=== PATIENT | female | born 1975 ===

== ENCOUNTER 2018-01-12 17:21 | Emergency (ER) | payer OTHER ==
[2018-01-12 17:33] VITALS: BP 116/72
[2018-01-12] MEDS ORDERED: cefTRIAXone VIAL(*) 1,000 MG VIAL IVPB ONE (17:55)
[2018-01-12] MEDS ORDERED: Dexamethasone IV* 4 MG/ML 1 ML (4 MG) IV SLOW PU ONE (17:56)
[2018-01-12] MEDS ORDERED: Ketorolac INJ* 30 MG/ML 1 ML VIAL IV PUSH ONE (17:57)
[2018-01-12] MEDS ORDERED: D5NS 0.9% 1000 ML BAG* 1,000 ML IV SCH (18:00)
--- NOTE | 2018-01-12 18:04 | UC ---
Throat Pain/Nasal Cordell HPI - HPI Summary HPI Summary: krista is an otherwise healthy 42-year-old female who presents to the with chief complaint of right-sided throat pain 7 days. A strep swab was obtained at her PCPs office and she was given penicillin twice a day. She started this antibiotic today. She has also been taking ibuprofen daily for her pain. She states her pain is getting worse and is also having difficulty opening her mouth and swallowing. History of a peritonsillar abscess to the ipsilateral side in February 2017. She states she was in the hospital 2 days with an incision and drainage made. This hospital admission was in [place]. She states she has similar symptoms to that time. She endorses odynophagia and dysphagia. Endorses pain to the right cervical anterior lymph node. She denies any fevers, sweats, chills. Denies any ear or nose symptoms. Jaw pain is bilateral and radiating to the TMJs. She continues to eat and drink, however with discomfort. On arrival her vital signs are stable except for a 99.6 slightly elevated temp. [ End ] - History of Current Complaint Chief Complaint: UCGeneralIllness Stated Complaint: SORE THROAT Time Seen by Provider: 01/12/18 17:37 Hx Obtained From: Patient Hx Last Menstrual Period: 3 days ago ?: No Onset/Duration: Sudden Onset Severity: Moderate Pain Intensity: 9 Pain Scale Used: 0-10 Numeric Associated Signs & Symptoms: Positive: Negative - Allergies/Home Medications Allergies/Adverse Reactions: Allergies Allergy/AdvReac Type Severity Reaction Status Date / Time ciprofloxacin [From Cipro] AdvReac Severe See Comment Verified 01/12/18 17:33 Home Medications: Home Medications Diclofenac Sodium EC TAB* [Voltaren EC TAB*] 25 mg PO ONCE PRN 01/12/18 [ History Confirmed 01/12/18] Ibuprofen TAB* [Motrin TAB* 600 MG] 600 mg PO Q6H PRN 01/12/18 [History Confirmed 01/12/18] Penicillin VK 500 MG TAB(NF) [Penicillin VK 500 mg Tab] 500 mg PO BID 01/12/18 [ History Confirmed 01/12/18] PMH/Surg Hx/FS Hx/Imm Hx Previously Healthy: Yes - Surgical History Surgical History: Yes Surgery Procedure, Year, and Place: February 2017 - peritonsillar abcess. breast surgery May 2017. x1. D&C x1. 7x orthopedic surgeries - Family History Known Family History: Positive: None - Social History Occupation: Employed Full-time Lives: With Family Alcohol Use: Rare Substance Use Type: None Smoking Status (MU): Never Smoked Tobacco Review of Systems All Other Systems Reviewed And Are Negative: Yes Constitutional: Positive: Negative Eyes: Negative: Blurred Vision, Diplopia, Drainage, Eye Redness ENT: Positive: Sore Throat. Negative: Nasal Discharge, Sinus Congestion, Sinus Pain/Tenderness Respiratory: Negative: Shortness Of Breath, Cough Cardiovascular: Positive: Negative Motor: Positive: Negative Neurovascular: Positive: Negative Neurological: Positive: Negative Is Patient Immunocompromised?: Yes Physical Exam Triage Information Reviewed: Yes Appearance: Well-Appearing, Well-Nourished Vital Signs: Initial Vital Signs Temp 99.6 F 01/12/18 17:28 Pulse 95 01/12/18 17:28 Resp 14 01/12/18 17:28 BP 116/72 01/12/18 17:28 Pulse Ox 100 01/12/18 17:28 Vital Signs Reviewed: Yes Eye Exam: Normal Eyes: Positive: Conjunctiva Clear ENT: Positive: Pharyngeal erythema, Tonsillar swelling, Trismus - however, continues to be able to open 3 finger breadths, Uvula midline, Other - no unilateral bulging. Negative: Pharynx normal, Nasal congestion, Nasal drainage , Tonsillar exudate, Muffled voice, Hoarse voice, Dental tenderness, Sinus tenderness Neck exam: Normal Neck: Positive: Supple, Enlarged Nodes @ - enlarged LAD - bilateral cervival Respiratory Exam: Normal Respiratory: Positive: Chest non-tender, Lungs clear, Normal breath sounds Cardiovascular Exam: Normal Cardiovascular: Positive: RRR Musculoskeletal Exam: Normal Musculoskeletal: Positive: Strength Intact Neurological Exam: Normal Neurological: Positive: Alert Psychological: Positive: Normal Response To Family Skin Exam: Normal Throat Pain/Nasal Course/Dx - Course Course Of Treatment: During the course of treatment, the patient is evaluated for strep throat versus peritonsillar abscess versus other etiology. She had a strep swab obtained at her PCP office 2 days ago and was diagnosed with strep throat with a + culture. She states she started her penicillin antibiotic this morning and she continues to have symptoms and she feels like this is worsening. 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 This was an uncomplicated course. She has not had symptoms since that time until approximately 7 days ago. She states the pain originally began to the left tonsil and moved over into the right tonsil about 5 days ago. She endorse decreased PO intake, however continues to maintain an adequate diet and hydration, however with discomfort. She has been taking ibuprofen 4 x daily. On physical examination, there is pharyngeal erythema with bilateral enlarged tonsils. Uvula is midline. Malampati score 2. There are no exudates bilaterally. There is bilateral cervical lymphadenopathy. Pharyngeal swelling present. No drooling or posturing noted. Muffled voice is not present. There is no pooling of saliva or drooling. She states she has pain with opening the jaw, but there is no trismus at this time and patient maintains the ability to open mouth wide (3 finger breadths) with 8/10 pain present. Lower risk/possibility of a deep space neck infection as patient has little discomfort to the bilateral sides of the neck on palpation. Slightly elevated temp at 99.6. Continues to deny sweats/chills. Discussed treatment options with patient. While this may evolve into a SU[employer] SHEARING from + strep/+high risk, uvula remains midline, is not enlarged and no unilateral peritonsillar bulging present. In the UC, she is given D5NS 1L, Rocephin 1g, Toradol 30mg IV, and 10mg decadron. She is encouraged to go to the ED if she develops any SOB, drooling, worsening fevers, worsening/difficulty swallowing. She understands these return precautions. She will otherwise follow up with ENT next week if any symptoms persist. Clindamycin 300mg QID added to regimen for broader coverage or MRSA/MSSA coverage not covered by her current penicillin. She will however continue her penicillin as well. Vaccinations are UTD. - Differential Dx/Diagnosis Differential Diagnosis/HQI/PQRI: Epiglottitis, Peritonsillar Abscess, Pharyngitis, Tonsillitis Provider Diagnosis: Strep pharyngitis Discharge - Sign-Out/Discharge Documenting (check all that apply): Patient Departure All imaging exams completed and their final reports reviewed: No Studies - Discharge Plan Condition: Stable Disposition: HOME Referrals: Ceci Altman DO [Primary Care Provider] - - Billing Disposition and Condition Condition: STABLE Disposition: Home
[2018-01-12] MEDS ORDERED: Clindamycin CAP* 150 MG PO ONE (18:41)
== END 2018-01-12 19:23 | disposition home or self-care (01) ==
LOC: UCEAST 17:21
DX: J02.0 Streptococcal pharyngitis (principal); B95.0 Streptococcus, group A, as the cause of diseases classified elsewhere; Z88.1 Allergy status to other antibiotic agents
CPT/HCPCS: 96360; 96374; 96375; 99202; A9270-GY; G0463; J0696; J1100; J1885